=== PATIENT | male | born 1980 | race Caucasian/White ===

== ENCOUNTER 2016-10-02 04:26 | Emergency (ER) | payer MEDICAID ==
[~2016-10-02] VITALS: Ht 185.4 cm; Wt 76.3 kg
[2016-10-02 04:28] VITALS: BP 132/87
[2016-10-02] MEDS ORDERED: METHOCARBAMOL 750 MG TABLET ONE (05:30)
[2016-10-02] MEDS ORDERED: METHOCARBAMOL 750 MG TABLET PO ONE (05:30)
[2016-10-02] MEDS ORDERED: KETOROLAC 30 MG/1 ML IM ONE (05:30)
[2016-10-02] MEDS ORDERED: KETOROLAC 30 MG/1 ML ONE (05:31)
== END 2016-10-02 05:49 | disposition home or self-care (01) ==
LOC: ED 05:00
DX: S39.012A Strain of muscle, fascia and tendon of lower back, initial encounter (principal); X58.XXXA Exposure to other specified factors, initial encounter; Y93.89 Activity, other specified; Y99.8 Other external cause status; Y92.89 Other specified places as the place of occurrence of the external cause
CPT/HCPCS: 96372; 99283; J1885

== ENCOUNTER 2017-01-21 14:46 | Emergency (ER) | payer MEDICAID ==
[~2017-01-21] VITALS: Ht 175.3 cm; Wt 81.2 kg
[2017-01-21] MEDS ORDERED: KETOROLAC 30 MG/1 ML IM ONE (15:30)
[2017-01-21 15:34] LABS: HEMATOCRIT 44.6 % (39.2-51.8); HEMOGLOBIN 14.9 g/dL (13.7-18.0); WHITE BLOOD COUNT 7.7 x10^3/uL (3.4-10)
[2017-01-21] MEDS ORDERED: KETOROLAC 30 MG/1 ML ONE (15:37)
[2017-01-21 15:45] LABS: BLOOD UREA NITROGEN 7 mg/dL (7-18)
[2017-01-21 15:49] LABS: IS PT STATUS REG ER OR PRE ER? YES
[2017-01-21 17:00] VITALS: BP 96/65
== END 2017-01-21 17:10 | disposition home or self-care (01) ==
LOC: ED 16:18
DX: R07.89 Other chest pain (principal); M94.0 Chondrocostal junction syndrome [Tietze]; J45.909 Unspecified asthma, uncomplicated
CPT/HCPCS: 36415; 71010; 80048; 82040; 84484; 85025; 93005; 96372; 99285; J1885

== ENCOUNTER 2018-12-18 07:29 | Emergency (ER) | payer MEDICAID ==
[~2018-12-18] VITALS: Ht 182.9 cm; Wt 81.6 kg
[2018-12-18 07:34] VITALS: BP 152/78
== END 2018-12-18 10:14 | disposition home or self-care (01) ==
LOC: ED 10:03
DX: H61.23 Impacted cerumen, bilateral (principal); L01.03 Bullous impetigo; J45.909 Unspecified asthma, uncomplicated; F17.200 Nicotine dependence, unspecified, uncomplicated; F20.9 Schizophrenia, unspecified
CPT/HCPCS: 69209; 99283; 99284